=== PATIENT | female | born 1985 | race Caucasian/White ===

== ENCOUNTER 2020-01-25 22:38 | Emergency (ER) | payer OTHER ==
[~2020-01-25] VITALS: Ht 160 cm; Wt 81.6 kg
[2020-01-25 22:39] VITALS: Ht 160 cm; Wt 81.6 kg
[2020-01-26 00:09] VITALS: BP 132/78
== END 2020-01-26 00:15 | disposition home or self-care (01) ==
LOC: ED 22:38
DX: U07.1 COVID-19 (principal); J12.89 Other viral pneumonia
CPT/HCPCS: Q0092; U0003-CS